=== PATIENT | female | born 2000 | race African-American/Black ===

== ENCOUNTER 2022-05-03 18:05 | Emergency (ER) | payer OTHER ==
[2022-05-03 18:17] VITALS: BP 114/81; RESP 19; TEMP 98.5; BMI 23.8
[2022-05-03 18:36] VITALS: PULSE 100
[2022-05-03 20:14] LABS: BASO % 0.6 % (0-2.0); EOS % 1.5 % (0-4.5); HEMATOCRIT 39.5 % (32.4-45.2); HEMOGLOBIN 13.2 GM/dL (10.7-15.3); LYMPH % 29.7 % (8-40); MCH 30.7 pg (25.7-33.7); MCHC 33.3 g/dl (32.0-36.0); MEAN CELL VOLUME 92.1 fl (80-96); MEAN PLT VOLUME 7.9 fl (7.5-11.1); MONO % 7.4 % (3.8-10.2); NEUT % 60.8 % (42.8-82.8); PLATELET COUNT 288 10^3/uL (134-434); RBC 4.29 M/mm3 (3.60-5.2); WHITE BLOOD COUNT 6.6 K/mm3 (4.0-10.0)
[2022-05-03 21:04] LABS: CALCIUM 9.2 mg/dL (8.5-10.1)
[2022-05-03 21:05] LABS: ALBUMIN 4.1 g/dl (3.4-5.0); BLOOD UREA NITROGEN 7.1 mg/dL (7-18)
[2022-05-03 21:08] LABS: CREATININE 0.6 mg/dL (0.55-1.3)
[2022-05-03 21:09] LABS: BILIRUBIN,TOTAL 0.8 mg/dL (0.2-1)
[2022-05-03 21:10] LABS: TOT PROT 7.2 g/dl (6.4-8.2)
[2022-05-03] MEDS ORDERED: LIDOCAINE 5% TOPICAL PATCH TP ONE (21:14)
[2022-05-03] MEDS ORDERED: LIDOCAINE 5% TOPICAL PATCH ONE (21:19)
[2022-05-03] MEDS ORDERED: LIDOCAINE PATCH REMOVAL MC SCH (22:00)
== END 2022-05-03 21:31 | disposition home or self-care (01) ==
LOC: JERFT 18:05
DX: M94.0 Chondrocostal junction syndrome [Tietze] (principal)
CPT/HCPCS: 36415; 71046-TC-FY; 80053; 84703; 85025; 85379; 99284-25